=== PATIENT | female | born 1975 | race Caucasian/White ===

== ENCOUNTER 2016-11-09 13:37 | Emergency (ER) | payer MEDICARE, MEDICAID ==
[~2016-11-09] VITALS: Ht 167.6 cm; Wt 79.5 kg
[2016-11-09 13:52] VITALS: BP 88/62; PULSE 96; RESP 15; O2SAT 96
[2016-11-09 14:03] VITALS: BP 95/67
--- NOTE | 2016-11-09 14:36 | DRSVH ---
PROCEDURE: X-RAY CHEST ONE VIEW, PORTABLE ([id number]) INDICATIONS: cp TECHNIQUE: One view of the chest was acquired. COMPARISON: None. FINDINGS: Surgical changes and devices: None. Lungs and pleura: No pleural effusions or pneumothorax. Lungs are clear. Mediastinum: Mediastinal contours appear normal. Heart size is normal. Bones and chest wall: No suspicious bony lesions. Overlying soft tissues appear unremarkable. IMPRESSION: No acute cardiopulmonary abnormality Dictated by: Shashi Glover M.D. on 11/09/2016 at 14:35 Approved by: Shashi Glover M.D. on 11/09/2016 at 14:35
[2016-11-09 14:56] LABS: BASOPHILS % (AUTO) 0.2 % (0-3); EOSINOPHILS % (AUTO) 0.8 % (0-5); MONOCYTES % (AUTO) 4.9 % (4-12); Mean Corpuscular Volume 86.6 fL (81-100); NEUTROPHILS % (AUTO) 58.8 % (40-74); Platelet Count 127 bil/L (150-400)
--- NOTE | 2016-11-09 15:10 | ED.REPORT ---
HPI-Chest Pain 40 and Over Date of Service Nov 09, 2016 ED Provider: Kendall Guevara MD The patient is a 41 year old female with history of diet controlled diabetes mellitus, high cholesterol, and renal failure, who presents to the emergency department by EMS for chest pain that started suddenly earlier today. The patient was at the pain clinic when the pain began. She describes the pain as "squeezing." The pain radiates into her back, left shoulder, and neck. Her pain has been intermittent since onset. Her pain is worse with deep breaths, movement or twisting. She complains of associated shortness of breath and diaphoresis. Her symptoms are not brought on with exertion. The duration of her symptoms is variable, the first episode today lasted for about 4 minutes. She had a similar episode on that was not as severe. She took nitroglycerin on after her pain started, this completely resolved her pain. She was seen at [facility] on and had a chest x-ray, blood work, and an EKG. The patient was offered admission but decided to leave A. She denies fever, chills, cough, abdominal pain, nausea, vomiting or diarrhea. Nursing Notes Stated Complaint: CHEST PAIN Chief Complaint: Chest Pain Nursing Notes Reviewed: Yes Allergies: Coded Allergies: aspirin (Verified Allergy, Mild, 11/09/16) pt states she cannot have it but doesnt know why lisinopril (Verified Allergy, Mild, 11/09/16) morphine (Verified Allergy, Mild, 11/09/16) sulfamethazine (Verified Allergy, Mild, 11/09/16) Uncoded Allergies: NSAIDS (Allergy, Mild, 11/09/16) SULFA (Allergy, Mild, 11/09/16) General Time Seen by MD: 15:08 Chief Complaint Chest pain Hx Obtained From: Patient, EMS Arrived By: Ambulance Sudden in Onset?: Yes Onset Occurred: 1 - 4 hours ago Symptom Duration: Intermittent Location: : Substernal Quality: Painful Radiation: : Back: Shoulder left Migration/Movement: Reports: None Severity: Current: Mild Severity: Maximum: Severe Exacerbated by: Deep breath, Movement Relieved by: Nitroglycerin at home x 1 Recent Healthcare: No recent hospitalization, Recent doctor visit Similar Sx Previous: Yes Risk Factors PERC Rule PERC Result: All PERC criteria "No", PERC rule satisfied Well's Criteria for PE [facility] PE Score: 0-2 pts (low risk 3.6%) Past Medical History Past Medical History Diet controlled diabetes mellitus High cholesterol Pt reports renal failure Past Surgical History Reports: Hysterectomy Family History Reports: Coronary artery disease Smoking History Current Every Day Smoker Social History Alcohol Use: Denies alcohol use Drug Use: Denies drug use Other Social History: Good social support, , Local resident Ambulatory Status Independent Review of Systems Constitutional: Denies: Chills, Fever Respiratory: Reports: Pleuritic pain, Shortness of breath, Denies: Non-productive cough Cardiovascular: Reports: Chest pain GI: Denies: Abdominal pain, Diarrhea, Nausea, Vomiting Musculoskeletal: Reports: Back pain, Joint pain, Neck pain Complete sys rev & neg: except as marked. Physical Exam Initial Vital Signs Vital Signs (First) Date Time Temp Pulse Resp B/P Pulse Ox O2 Delivery O2 Flow Rate FiO2 11/09/16 13:52 36.7 96 15 88/62 96 Room Air Initial VS: Reviewed Head / Eyes: Atraumatic, Normocephalic, PERRL ENT: Mucous membranes moist, Conjunctiva normal, No scleral icterus Neck: Supple, Non-tender, Full range of motion Lymphatic: No lymphadenopathy Extremities: Vascular intact, Neuro intact, No swelling, No tenderness Skin: Warm, Dry, No cyanosis Neurologic: Alert, Oriented, Nonfocal Psychiatric: Mood/affect normal, Behavior normal, Normal thought content General/Constitutional: Awake, Alert, Cooperative Respiratory / Chest: Atraumatic, Breath sounds NL, Breath sounds = bilat, No respiratory distress, No rales, No rhonchi, No wheezing, No stridor There is a 25 microgram per hour Fentanyl patch about her anterior chest wall. Tenderness to her anterior chest wall. Cardiovascular: Heart rate NL, Regular rhythm, Heart sounds NL, No gallop, No murmurs, No rubs, Peripheral circulation NL, Pulses = bilaterally, No gross BP differential Abdomen: Atraumatic, Soft, Non-tender, McBurney's non-tender, No guarding, No rebound, BS normoactive, No distention, No hernia, No palpable mass Lower Extremity / Pelvis / MS: No swelling, Neurologic intact, Vascular intact , No edema No calf swelling or tenderness Interpretation & Diagnostics Lab Results Interpretation Result Diagram: 11/09/16 1445 11/09/16 1445 Test 3/20/17 14:45 White Blood Count 10.7th/mm3 (3.8-10.1) Red Blood Count 5.67mil/mm3 (3.90-5.20) Hemoglobin 17.6g/dL (12.0-15.6) Hematocrit 49.1% (35.0-46.0) Mean Corpuscular Volume 86.6fL (81-100) Mean Corpuscular Hemoglobin 31.0pg (27.0-35.0) Mean Corpuscular Hemoglobin Concent 35.8% (32.0-37.0) Red Cell Distribution Width 13.0% (12.3-15.4) Platelet Count 127bil/L (150-400) Neutrophils (%) (Auto) 58.8% (40-74) Lymphocytes (%) (Auto) 35.1% (14-46) Monocytes (%) (Auto) 4.9% (4-12) Eosinophils (%) (Auto) 0.8% (0-5) Basophils (%) (Auto) 0.2% (0-3) Sodium Level 136mEq/L (134-144) Potassium Level 3.1mEq/L (3.5-5.2) Chloride Level 96mEq/L (97-108) Carbon Dioxide Level 20mmol/L (18-29) Blood Urea Nitrogen 9mg/dL (6-24) Creatinine 0.53mg/dL (0.57-1.00) Estimat Glomerular Filtration Rate 181mL/min (>59) Glucose Level 163mg/dL (60-99) Calcium Level 9.3mg/dL (8.5-10.1) Magnesium Level 1.8mg/dL (1.6-2.6) Total Bilirubin 0.9mg/dL (0.0-1.2) Aspartate Amino Transf (AST/SGOT) 48U/L (0-50) Alanine Aminotransferase (ALT/SGPT) 43U/L (0-32) Alkaline Phosphatase 120U/L (25-150) Troponin T < 0.010ug/L (0.0-0.011) Total Protein 6.7g/dL (6.4-8.4) Albumin 4.5g/dL (3.4-5.0) Hold Barnes Top Tube Received (Received) ECG Interpretation ECG Interpretation: Sinus rhythm with a rate of 81 bpm LAD Diffuse nonspecific T wave abnormalities are present No acute ST segment changes No priro EKGs available for comparison Time: 14:01 Interpreted by: ED physician X-Ray Chest Interpretation Chest Xray Interpretation: IMPRESSION: No acute cardiopulmonary abnormality Dictated by: Shashi Glover M.D. on 11/09/2016 at 14:35 Interpretation / Wet Read by: Interpret - Radiologist Re-Eval/Medical Decision Med Decision/Clinical Course The patient is a 41 year old female with history of diet controlled diabetes mellitus, high cholesterol, and renal failure, who presents to the emergency department by EMS for chest pain that started suddenly earlier today. The patient was at the pain clinic when the pain began. She describes the pain as "squeezing." The pain radiates into her back, left shoulder, and neck. Her pain has been intermittent since onset. Her pain is worse with deep breaths, movement or twisting. She complains of associated shortness of breath and diaphoresis. Her symptoms are not brought on with exertion. The duration of her symptoms is variable, the first episode today lasted for about 4 minutes. She had a similar episode on that was not as severe. She took nitroglycerin on after her pain started, this completely resolved her pain. She was seen at [facility] on and had a chest x-ray, blood work, and an EKG. The patient was offered admission but decided to leave AMA. She denies fever, chills, cough, abdominal pain, nausea, vomiting or diarrhea. Reviewed records from [place] for a visit on 11/06/2015. During this visit she had an EKG, chest x-ray, and blood work. The EKG was interpreted as normal. Chest x-ray obtained that day was interpreted as normal. Labs obtained that day included CBC and BMP and troponin all of which were unremarkable. She was felt to be low-mod risk for acute coronary syndrome and plana t that time was further evaluation in the [facility]. However she did not want further workup and left AMA. Here in the emergency department today EKG was obtained and interpreted by myself as documented above. CXR: Obtained, reviewed and interpreted by myself shows no evidence of acute infiltrates, effusions or pneumothorax. Cardiac and mediastinal silhouette normal. No bony or soft tissue abnormalities. CBC obtained today demonstrated mild polycythemia and borderline leukocytosis those otherwise unremarkable. CMP demonstrated borderline hypokalemia with potassium of 3.1 and was otherwise unremarkable. Troponin was negative. Spoke with Dr. Hinton, he is very familiar with the patient. He has already reviewed the notes from [place]. We reviewed the findings from today including the EKG that was unchanged and the negative troponin. He feels that she is low risk and is in agreement with outpatient cardiac workup. He will see her on of next week and the nurse will call her to schedule the appointment. I additionally considered pulmonary embolism however the patient is without tachypnea, tachycardia, evidence of DVT on physical examination. Suspicion for pulmonary embolism is relatively low in this patient and I do not feel that workup for pulmonary embolism is immediately indicated. No evidence of pneumonia or pneumothorax. Presentation is suggestive of aortic dissection. An reproducibility of pain I suspect there may be a musculoskeletal factor however the patient does warrant further cardiac risk stratification. Per my discussion with her primary care physician we can achieve this on an outpatient basis. Follow-up and return precautions were reviewed in detail with the patient and she was discharged in stable condition. Of note, she refused aspirin stating that she was allergic however she did receive aspirin at [place] without any documented issues. I discussed with the patient that aspirin is important preventative measure and she continues to refuse it. Source of Hx: Old records, Family Time of Eval: 15:41 Re-Evaluation/Progress Note: Rechecked the patient. Discussed plan for discharge with outpatient followup. All questions were addressed. 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: Will see in office, Agrees with eval, Agrees with plan Counseled Regarding: Diagnosis, Lab results, Need for follow-up, When/why to return to ED Discharge & Departure Primary Impression: Chest pain Chest pain type: unspecified Qualified Code: R07.9 - Chest pain, unspecified Additional Impressions: Leukocytosis Leukocytosis type: unspecified Qualified Code: D72.829 - Elevated white blood cell count, unspecified Chronic pain Chronic pain type: other chronic pain Qualified Code: G89.29 - Other chronic pain Hypokalemia Disposition: Home Discharge Condition All VS Reviewed: Yes Condition: Stable Additional Instructions: Thank you for seeking care at emergency room. You were seen today because you have had several episodes of chest pain. Our primary goal today in the ED was to evaluate you for any life-threatening conditions. Your evaluation was reassuring at this time. I see that you were given aspirin at [place] and your primary care doctor says you have no allergies to aspirin documented. I recommended you start taking a baby aspirin daily. Your primary care doctor Jamaal would like to see you in clinic next week, probably on , and he will be called for an appointment. They will likely do further testing on your heart. You should return to the ED immediately if you develop recurrent chest pain, fevers, vomiting, cough, shortness of breath, lightheadedness, weakness or any other concerning signs or symptoms. Thank you for letting us partake in your care today. Referrals: Darwin Hinton MD (PCP) Scribe Attestation Portions of this note were transcribed by Rossana Nowak. I, Dr. Guevara personally performed the history, physical exam and medical decision-making; I reviewed and confirmed the accuracy of the information in the transcribed note. Signed by: Farhan Segovia, 11/09/2016 at 1540. copies to: Darwin Hinton MD, Beck O MD Nov 09, 2016 15:10 Rossana Nowak Nov 09, 2016 15:19
[2016-11-09 15:20] LABS: TROPONIN T < 0.010 ug/L (0.0-0.011)
[2016-11-09 15:30] LABS: Magnesium 1.8 mg/dL (1.6-2.6)
[2016-11-09 15:56] VITALS: BP 110/59; PULSE 71; RESP 16; O2SAT 98
== END 2016-11-09 16:04 | disposition home or self-care (01) ==
LOC: EDBD 13:37 → SED 13:37
DX: R07.9 Chest pain, unspecified (principal); D72.829 Elevated white blood cell count, unspecified; G89.29 Other chronic pain; E87.6 Hypokalemia; E11.29 Type 2 diabetes mellitus with other diabetic kidney complication; E78.00 Pure hypercholesterolemia, unspecified; F17.210 Nicotine dependence, cigarettes, uncomplicated; N19 Unspecified kidney failure; Z88.6 Allergy status to analgesic agent; Z88.5 Allergy status to narcotic agent; Z88.2 Allergy status to sulfonamides; Z88.8 Allergy status to other drugs, medicaments and biological substances